=== PATIENT | male | born 1970 | race Caucasian/White ===

== ENCOUNTER → 2024-08-21 14:26 | Outpatient (REF) | payer BC, SELFPAY | LOC: HWRAD 14:26 | PROVIDERS: ATTENDING PHYSICIAN Otolaryngology Facial Plastic Surgery; FAMILY PHYSICIAN Internal Medicine | DX: J32.0 Chronic maxillary sinusitis (principal); J34.2 Deviated nasal septum | CPT/HCPCS: 70486 ==